=== PATIENT | male | born 1960 | race African-American/Black ===

== ENCOUNTER 2017-06-25 16:36 | Emergency (ER) | payer OTHER ==
[2017-06-25 16:41] VITALS: BP 102/68; PULSE 71; TEMP 98; BMI 31.5
--- NOTE | 2017-06-25 16:44 | PDOC ---
Rapid Medical Evaluation Chief Complaint: Chest Pain Time Seen by Provider: 06/25/17 16:43 Medical Evaluation: Allergies Allergy/AdvReac Type Severity Reaction Status Date / Time Penicillins Allergy Severe Hives Verified 06/25/17 16:38 Vital Signs Temp Pulse Resp BP Pulse Ox 98.0 F 71 18 102/68 100 06/25/17 16:39 06/25/17 16:39 06/25/17 16:39 06/25/17 16:39 06/25/17 16:39 06/25/17 16:43 I have performed a brief in-person evaluation of this patient. The patient presents with a chief complaint of: epigastric/chest pain x "a few days ago" , no PMH, taking antibiotics for "mucus" Pertinent physical exam findings: well appearing, dry cough I have ordered the following: ekg, labs The patient will proceed to the ED for further evaluation. Discharge Disposition - Diagnosis Epigastric discomfort - Referrals Referrals: Klaus Mock MD [Primary Care Provider] - - Patient Instructions - Post Discharge Activity
[2017-06-25 17:46] LABS: BASO % 0.4 % (0-2.0); EOS % 1.1 % (0-4.5); HEMATOCRIT 38.2 % (35.4-49); LYMPH % 36.6 % (8-40); MCH 27.5 pg (25.7-33.7); MCHC 33.9 g/dl (32.0-35.9); MEAN CELL VOLUME 81.2 fl (80-96); MEAN PLT VOLUME 8.3 fl (7.5-11.1); MONO % 9.5 % (3.8-10.2); NEUT % 52.4 % (42.8-82.8); PLATELET COUNT 191 K/MM3 (134-434); RBC 4.71 M/mm3 (4.00-5.60); WHITE BLOOD COUNT 6.6 K/mm3 (4.0-10.0)
--- NOTE | 2017-06-25 17:47 | PDOC ---
History of Present Illness - General Chief Complaint: Chest Pain Stated Complaint: EPIGASTRIC PAIN Time Seen by Provider: 06/25/17 16:43 History Source: Patient Exam Limitations: No Limitations - History of Present Illness Initial Comments: 06/25/17 17:44 Patient is a 57-year-old male with past medical history of kidney stones, who presents emergency department today complaining of epigastric pain. Patient states that his pain started approximately 2 days ago. The pain radiates to his back and it is non-reproducible. He thought that he was having an episode of reflux so he tried [id number] Fidelia, Maalox, milk of magnesia, Pepcid at separate times with no relief. Denies palpitations, shortness of breath, fevers, chills, nausea, vomiting, diarrhea, hematuria, dysuria and frequency. Past History - Travel Traveled outside of the country in the last 30 days: No Close contact w/someone who was outside of country & ill: No - Past Medical History Allergies/Adverse Reactions: Allergies Allergy/AdvReac Type Severity Reaction Status Date / Time Penicillins Allergy Severe Hives Verified 06/25/17 16:38 Home Medications: Ambulatory Orders NK [No Known Home Medication] 06/25/17 COPD: No - Immunization History Immunization Up to Date: Yes - Suicide/Smoking/Psychosocial Hx Smoking History: Never smoked Have you smoked in the past 12 months: No Information on smoking cessation initiated: No Hx Alcohol Use: No Drug/Substance Use Hx: No Substance Use Type: None Review of Systems - Review of Systems Able to Perform ROS?: Yes Comments:: 06/25/17 18:56 CONSTITUTIONAL: Absent: fever, chills, diaphoresis, generalized weakness, malaise, loss of appetite HEENT: Absent: rhinorrhea, nasal congestion, throat pain, throat swelling, difficulty swallowing, mouth swelling, ear pain, eye pain, visual Changes CARDIOVASCULAR: Present: epigastric pain radiating to the back. Absent: loss of consciousness, palpitations, irregular heart rate, peripheral edema RESPIRATORY: Absent: cough, shortness of breath, dyspnea with exertion, orthopnea, wheezing, stridor, hemoptysis GASTROINTESTINAL: Absent: abdominal pain, abdominal distension, nausea, vomiting, diarrhea, constipation, melena, hematochezia GENITOURINARY: Absent: dysuria, frequency, urgency, hesitancy, hematuria, flank pain, genital pain MUSCULOSKELETAL: Absent: myalgia, arthralgia, joint swelling SKIN: Absent: rash, itching, pallor HEMATOLOGIC/IMMUNOLOGIC: Absent: easy bleeding, easy bruising, lymphadenopathy, frequent infections ENDOCRINE: Absent: unexplained weight gain, unexplained weight loss, heat intolerance, cold intolerance NEUROLOGIC: Absent: headache, focal weakness or paresthesias, dizziness, unsteady gait, seizure, mental status changes, bladder or bowel incontinence PSYCHIATRIC: Absent: anxiety, depression, suicidal or homicidal ideation, hallucinations. Is the patient limited [place] proficient: No *Physical Exam - Vital Signs Last Vital Signs Temp Pulse Resp BP Pulse Ox 98.0 F 71 18 102/68 100 06/25/17 16:39 06/25/17 16:39 06/25/17 16:39 06/25/17 16:39 06/25/17 16:39 - Physical Exam Comments: 06/25/17 18:57 GENERAL: Well developed, well nourished. Awake and alert. No acute distress. HEENT: Normocephalic, atraumatic. PERRLA, EOMI. No conjunctival pallor. Sclera are non- icteric. Moist mucous membranes. Oropharynx is clear. NECK: Supple. Full ROM. No JVD. Carotid pulses 2+ and symmetric, without bruits. No thyromegaly. No lymphadenopathy. CARDIOVASCULAR: Regular rate and rhythm. No murmurs, rubs, or gallops. Distal pulses are 2+ and symmetric. PULMONARY: No evidence of respiratory distress. Lungs clear to auscultation bilaterally. No wheezing, rales or rhonchi. ABDOMINAL: Soft. Non-tender. Non-distended. No rebound or guarding. No organomegaly. Normoactive bowel sounds. MUSCULOSKELETAL Normal range of motion at all joints. No bony deformities or tenderness. No CVA tenderness. EXTREMITIES: No cyanosis. No clubbing. No edema. No calf tenderness. SKIN: Warm and dry. Normal capillary refill. No rashes. No jaundice. NEUROLOGICAL: Alert, awake, appropriate. Cranial nerves 2-12 intact. No deficits to light touch and temperature in face, upper extremities and lower extremities. No motor deficits in the in face, upper extremities and lower extremities. Normoreflexic in the upper and lower extremities. Normal speech. Toes are down- going bilaterally. Gait is normal without ataxia. PSYCHIATRIC: Cooperative. Good eye contact. Appropriate mood and affect. ED Treatment Course - LABORATORY CBC & Chemistry Diagram: 06/25/17 17:12 06/25/17 17:14 Medical Decision Making - Medical Decision Making 06/25/17 17:57 Patient is a 57-year-old male past medical history of kidney stones, who presents emergency department today complaining of epigastric pain for 3 days. Pain is not reproducible on exam. Exam is otherwise normal. At this time as an epigastric versus chest pain rule out. Patient pending lab work, will need second troponin in 4 hours. Patient pending chest x-ray as well. EKG: Rate 69 bpm, NSR, normal intervals, normal axis, no acute ST-T wave changes , overall normal ECG 06/25/17 19:00 Sign out given to MARKO Wilson. Pending labs and dispo *DC/Admit/Observation/Transfer Diagnosis at time of Disposition: Epigastric discomfort Back pain Qualifiers: Back pain location: thoracic back pain Chronicity: acute Back pain laterality: right Qualified Code(s): M54.6 - Pain in thoracic spine - Discharge Dispostion Disposition: HOME Condition at time of disposition: Stable - Referrals Referrals: Eder Lawrence MD [Staff Physician] - Klaus Mock MD [Primary Care Provider] - - Patient Instructions Printed Discharge Instructions: DI for Thoracic Back Pain Additional Instructions: Rest Follow-up with your physician and the project controls scheduler on your discharge Return back to the emergency department for severe/persistent or worsening symptoms - Post Discharge Activity
[2017-06-25] MEDS ORDERED: ACETAMINOPHEN 325 MG TABLET (FP) PO ONE (17:48)
[2017-06-25 17:58] LABS: INR 1.19 (0.82-1.09); PROTHROMBIN TIME (PATIENT) 13.5 SEC (9.7-13.0)
[2017-06-25 17:59] LABS: ANION GAP 7 (8-16); BILIRUBIN,TOTAL 0.5 mg/dL (0.2-1.0); BLOOD UREA NITROGEN 8 mg/dL (7-18); CALCIUM 9.3 mg/dL (8.5-10.1); CHLORIDE 107 mmol/L (98-107); CO2 28 mmol/L (21-32); CREATININE 0.8 mg/dL (0.7-1.3); GLUCOSE,RANDOM 96 mg/dL (74-106); SGOT/AST 18 U/L (15-37); SGPT/ALT 28 U/L (12-78); SODIUM 142 mmol/L (136-145); TOT PROT 7.9 g/dl (6.4-8.2)
[2017-06-25 18:02] LABS: ALK PHOS 82 U/L (45-117)
--- NOTE | 2017-06-25 20:14 | PDOC ---
*Physical Exam - Vital Signs Last Vital Signs Temp Pulse Resp BP Pulse Ox 98.0 F 71 18 102/68 100 06/25/17 16:39 06/25/17 16:39 06/25/17 16:39 06/25/17 16:39 06/25/17 16:39 - Physical Exam Comments: 06/25/17 20:13 57-year-old male complaining of pain to the right posterior mid back and believes it could either be muscle strain or indigestion. Cardiac workup were negative. We'll order second set of troponin. Patient will be given Toradol 60 mg IM. ED Treatment Course - LABORATORY CBC & Chemistry Diagram: 06/25/17 17:12 06/25/17 17:14 - ADDITIONAL ORDERS Additional order review: Laboratory Results 06/25/17 06/25/17 06/25/17 17:54 17:14 17:12 PT with INR INR Sodium 142 Potassium 4.0 Chloride 107 Carbon Dioxide 28 Anion Gap 7 L BUN 8 Creatinine 0.8 Creat Clearance w eGFR > 60 Random Glucose 96 Calcium 9.3 Magnesium 1.8 Total Bilirubin 0.5 AST 18 D ALT 28 Alkaline Phosphatase 82 Creatine Kinase 164 Creatine Kinase Index 0.6 CK-MB (CK-2) < 1.000 Troponin I < 0.02 Total Protein 7.9 Albumin 4.0 Lipase 177 06/25/17 17:12 PT with INR 13.50 H INR 1.19 H Sodium Potassium Chloride Carbon Dioxide Anion Gap BUN Creatinine Creat Clearance w eGFR Random Glucose Calcium Magnesium Total Bilirubin AST ALT Alkaline Phosphatase Creatine Kinase Creatine Kinase Index CK-MB (CK-2) Troponin I Total Protein Albumin Lipase 06/25/17 17:12 RBC 4.71 MCV 81.2 MCHC 33.9 RDW 15.0 MPV 8.3 Neutrophils % 52.4 Lymphocytes % 36.6 D Monocytes % 9.5 Eosinophils % 1.1 Basophils % 0.4 - Medications Given in the ED: ED Medications Discontinued Medications Generic Name Dose Route Start Last Admin Trade Name Freq PRN Reason Stop Dose Admin Acetaminophen 650 mg 06/25/17 17:48 06/25/17 18:26 Tylenol - PO 06/25/17 17:49 Not Given ONCE ONE Progress Note - Progress Note Progress Note: 2216hrs: Patient was given Toradol 60 IM and is pain-free. Patient wishes to be discharged. Second set of troponins were negative. *DC/Admit/Observation/Transfer Diagnosis at time of Disposition: Epigastric discomfort Back pain Qualifiers: Back pain location: thoracic back pain Chronicity: acute Back pain laterality: right Qualified Code(s): M54.6 - Pain in thoracic spine - Discharge Dispostion Disposition: HOME Condition at time of disposition: Stable Admit: No - Referrals Referrals: Klaus Mock MD [Primary Care Provider] - Eder Lawrence MD [Staff Physician] - - Patient Instructions Printed Discharge Instructions: DI for Thoracic Back Pain Additional Instructions: Rest Follow-up with your physician and the center director lead teacher on your discharge Return back to the emergency department for severe/persistent or worsening symptoms - Post Discharge Activity
[2017-06-25] MEDS ORDERED: KETOROLAC TROMETHAMINE 60 MG/2 ML VIAL IM ONE (20:15)
[2017-06-25] MEDS ORDERED: KETOROLAC TROMETHAMINE 60 MG/2 ML VIAL ONE (20:17)
--- NOTE | 2017-06-26 11:31 | EKG ---
Test Reason : Blood Pressure : / mmHG Vent. Rate : 069 BPM Atrial Rate : 069 BPM P-R Int : 170 ms QRS Dur : 084 ms QT Int : 388 ms P-R-T Axes : 064 009 036 degrees QTc Int : 415 ms NORMAL SINUS RHYTHM NORMAL ECG WHEN COMPARED WITH ECG OF 21-MAR-2015 08:26, NO SIGNIFICANT CHANGE WAS FOUND Confirmed by SUKUMAR OCONNOR MD ([id number]) on 06/26/2017 11:31:19 AM Referred By: Confirmed By:SUKUMAR OCONNOR MD
== END 2017-06-25 22:26 | disposition home or self-care (01) ==
LOC: JER 16:36
PROC: 3E0233Z Introduction of Anti-inflammatory into Muscle, Percutaneous Approach (ICD-10-PCS; principal; 2017-06-25)
DX: R10.13 Epigastric pain (principal)
CPT/HCPCS: 36415; 71046-TC-FY; 80053; 82550; 82553; 83690; 83735; 84484; 85025; 85610; 93005; 93010; 99282-25

== ENCOUNTER 2018-06-15 10:11 | Emergency (ER) | payer OTHER ==
[2018-06-15 10:19] VITALS: BP 107/65; PULSE 75; TEMP 97.7; BMI 30.1
--- NOTE | 2018-06-15 11:24 | PDOC ---
History of Present Illness - General Chief Complaint: Respiratory Stated Complaint: COUGHING Time Seen by Provider: 06/15/18 11:09 - History of Present Illness Initial Comments: 06/15/18 11:23 58-year-old male without comorbidities presents for evaluation of cough 5 days. He states he was cleaning the floor in his house with ammonia, since that time he developed a cough and right-sided rib pain. Past History - Past Medical History Allergies/Adverse Reactions: Allergies Allergy/AdvReac Type Severity Reaction Status Date / Time Penicillins Allergy Severe Hives Verified 06/15/18 10:20 Home Medications: Ambulatory Orders Guaifenesin Dm [Mucinex Dm -] 1 tab PO BID #60 tab.er.[id number] 06/15/18 COPD: No - Immunization History Immunization Up to Date: Yes - Suicide/Smoking/Psychosocial Hx Smoking History: Never smoked Have you smoked in the past 12 months: No Information on smoking cessation initiated: No Hx Alcohol Use: No Drug/Substance Use Hx: No Substance Use Type: None Review of Systems - Review of Systems Constitutional: No: Fever Respiratory: Yes: Cough Musculoskeletal: Yes: See HPI *Physical Exam - Vital Signs Last Vital Signs Temp Pulse Resp BP Pulse Ox 97.7 F 75 18 107/65 99 06/15/18 10:16 06/15/18 10:16 06/15/18 10:16 06/15/18 10:16 06/15/18 10:16 - Physical Exam Comments: 06/15/18 11:24 HEAD: NC/AT EYES: Conjuntiva clear Ears: Canals and TM's normal NOSE: No d/c THROAT: Moist mucous membrances, oral pharanx clear, uvula midline NECK: Supple without adenopathy CARDIAC: S1 S2 LUNGS: CTA Full and Equal breath sounds; tenderness about the right side of ribs 789 from the costochondral junction wrapping around the right side to the mid back ABDOMEN: Soft NT ND MS: Full ROM in all joints without edema NEUROLOGIC: No gross sensory or motor deficits, NVID SKIN: Normal color and temperature no lesions or rashes ED Treatment Course - RADIOLOGY Radiology Studies Ordered: Category Date Time Status CHEST - PA [RAD] Stat Radiology 06/15/18 11:22 Ordered RIBS RIGHT SIDE [RAD] Stat Radiology 06/15/18 11:22 Ordered Medical Decision Making - Medical Decision Making 06/15/18 12:05 Chest x-ray shows no infiltrates rib x-ray show no acute fracture. I will give her Mucinex for his cough and have him follow-up with pulmonology. *DC/Admit/Observation/Transfer Diagnosis at time of Disposition: Cough - Discharge Dispostion Disposition: HOME Condition at time of disposition: Stable Decision to Admit order: No - Referrals Referrals: Klaus Mock MD [Primary Care Provider] - Dick Morales MD, [Staff Physician] - - Patient Instructions Printed Discharge Instructions: Cough, DI for Cough -- Adult Additional Instructions: Return to the emergency room for worsening symptoms. Please take the Mucinex as directed. Follow-up with pulmonology in one to 2 days for further evaluation and treatment options for your cough. - Post Discharge Activity
== END 2018-06-15 12:12 | disposition home or self-care (01) ==
LOC: JERFT 10:11
DX: R05 Cough (principal)
CPT/HCPCS: 71045-TC-FY; 71101-TC-RT-FY; 99281-25

== ENCOUNTER 2020-12-30 04:40 | Day surgery (SDC) | payer OTHER ==
[2020-12-26 09:48] VITALS: BMI 30.1
[2020-12-30] MEDS ORDERED: MIDAZOLAM HCL 2 MG/2 ML SINGLE DOSE VIAL ONE (11:34)
[2020-12-30] MEDS ORDERED: KETOROLAC TROMETHAMINE 30 MG/1 ML VIAL ONE (14:53)
[2020-12-30 18:15] VITALS: BP 119/53; PULSE 62; TEMP 97
== END 2020-12-30 17:00 | disposition home or self-care (01) ==
LOC: JASU-SURG 04:40
PROVIDERS: ATTEND Urology
PROC: 0TF3XZZ Fragmentation in Right Kidney Pelvis, External Approach (ICD-10-PCS; principal; 2020-12-30 12:30)
DX: N20.0 Calculus of kidney (principal)

== ENCOUNTER 2021-05-05 04:19 | Day surgery (SDC) | payer OTHER ==
[2021-05-01 15:27] VITALS: BMI 30.1
[2021-05-05] MEDS ORDERED: MIDAZOLAM HCL 2 MG/2 ML SINGLE DOSE VIAL ONE (10:08)
[2021-05-05] MEDS ORDERED: LIDOCAINE HCL/PF 2% SDV 5ML VIAL ONE (10:23)
[2021-05-05 12:26] VITALS: BP 121/72; PULSE 68; TEMP 98.2
== END 2021-05-05 12:10 | disposition home or self-care (01) ==
LOC: JASU-SURG 04:19
PROVIDERS: ATTEND Urology
PROC: 0TF4XZZ Fragmentation in Left Kidney Pelvis, External Approach (ICD-10-PCS; principal; 2021-05-05 09:30)
DX: N20.0 Calculus of kidney (principal)

== ENCOUNTER 2023-03-21 10:57 | Emergency (ER) | payer OTHER ==
[2023-03-21 11:06] VITALS: BP 114/62; PULSE 73; RESP 18; TEMP 97.6; BMI 30.1
[2023-03-21] MEDS ORDERED: ACETAMINOPHEN 500 MG TABLET (FP) PO ONE (12:42)
[2023-03-21] MEDS ORDERED: ACETAMINOPHEN 500 MG TABLET (FP) ONE (12:54)
== END 2023-03-21 12:55 | disposition home or self-care (01) ==
LOC: JERFT 10:57 → JER 10:57 → JERFT 12:55
DX: R07.89 Other chest pain (principal)
CPT/HCPCS: 71101-TC-LT-FY; 99283-25

== ENCOUNTER 2023-08-09 04:23 | Day surgery (SDC) | payer OTHER ==
[2023-08-02 14:57] VITALS: BMI 30.1
[2023-08-09] MEDS ORDERED: MIDAZOLAM HCL 2 MG/2 ML SINGLE DOSE VIAL ONE (12:59)
[2023-08-09 13:38] VITALS: TEMP 97.7
[2023-08-09 14:37] VITALS: BP 116/70; PULSE 57; RESP 18
== END 2023-08-09 14:25 | disposition home or self-care (01) ==
LOC: JASU-SURG 04:23
PROVIDERS: ATTEND Urology
PROC: 0TF3XZZ Fragmentation in Right Kidney Pelvis, External Approach (ICD-10-PCS; principal; 2023-08-09 12:30)
DX: N20.0 Calculus of kidney (principal)

== ENCOUNTER 2023-12-25 08:07 | Emergency (ER) | payer OTHER ==
[2023-12-25 08:16] VITALS: TEMP 97.6; BMI 35.9
[2023-12-25 09:50] LABS: BASO % 0.6 % (0-2.0); EOS % 1.5 % (0-4.5); HEMATOCRIT 37.2 % (35.4-49); HEMOGLOBIN 12.2 GM/dL (11.7-16.9); LYMPH % 33.2 % (8-40); MCH 26.7 pg (25.7-33.7); MCHC 32.9 g/dl (32.0-35.9); MEAN CELL VOLUME 81.1 fl (80-96); MEAN PLT VOLUME 8.5 fl (7.5-11.1); MONO % 10.1 % (3.8-10.2); NEUT % 54.6 % (42.8-82.8); PLATELET COUNT 181 10^3/uL (134-434); RBC 4.59 M/mm3 (4.00-5.60); RDW 15.4 % (11.9-15.9); WHITE BLOOD COUNT 6.6 K/mm3 (4.0-10.0)
[2023-12-25 09:58] LABS: POTASSIUM 4.2 mmol/L (3.5-5.1)
[2023-12-25 09:59] LABS: CALCIUM 9.5 mg/dL (8.5-10.1)
[2023-12-25 10:00] LABS: ALBUMIN 3.7 g/dl (3.4-5.0); BLOOD UREA NITROGEN 12.7 mg/dL (7-18)
[2023-12-25 10:04] LABS: CREATININE 0.9 mg/dL (0.55-1.3)
[2023-12-25 10:05] LABS: BILIRUBIN,TOTAL 0.7 mg/dL (0.2-1); TOT PROT 7.3 g/dl (6.4-8.2)
[2023-12-25] MEDS: ACETAMINOPHEN 325 MG TABLET (FP) PO ONE (10:59)
[2023-12-25] MEDS ORDERED: ACETAMINOPHEN 325 MG TABLET (FP) ONE (11:00)
[2023-12-25 12:05] VITALS: BP 125/81; PULSE 62; RESP 12
== END 2023-12-25 12:05 | disposition home or self-care (01) ==
LOC: JER 08:07
DX: M94.1 Relapsing polychondritis (principal); R07.89 Other chest pain; R05.9 Cough, unspecified; Z20.822 Contact with and (suspected) exposure to COVID-19
CPT/HCPCS: 0241U-QW; 36415; 71046-TC-FY; 80053; 84484; 85025; 93005; 93010; 99285-25